=== PATIENT | male | born 1995 | race Caucasian/White ===

== ENCOUNTER 2017-07-23 09:13 | Emergency (ER) | payer SELFPAY ==
[~2017-07-23] VITALS: Ht 170.2 cm; Wt 68.2 kg
[2017-07-23 09:14] VITALS: TEMP 97.2
[2017-07-23 10:45] VITALS: BP 113/68; PULSE 56
== END 2017-07-23 10:45 | disposition home or self-care (01) ==
LOC: COL.ER 09:13
DX: S09.90XA Unspecified injury of head, initial encounter (principal); S01.81XA Laceration without foreign body of other part of head, initial encounter; V00.131A Fall from skateboard, initial encounter; Y93.I9 Activity, other involving external motion; Y92.219 Unspecified school as the place of occurrence of the external cause

== ENCOUNTER 2017-07-31 18:22 | Emergency (ER) | payer SELFPAY ==
[2017-07-31 18:32] VITALS: BP 110/65; PULSE 65; TEMP 98.1
== END 2017-07-31 18:41 | disposition home or self-care (01) ==
LOC: COL.ER 18:22
DX: S01.81XD Laceration without foreign body of other part of head, subsequent encounter (principal)

== ENCOUNTER 2019-02-06 01:40 | Emergency (ER) | payer OTHER ==
[~2019-02-06] VITALS: Ht 170.2 cm; Wt 68.2 kg
[2019-02-06 01:46] VITALS: BP 119/79; TEMP 98.4
[2019-02-06] MEDS ORDERED: CEPHALEXIN500 M1 PO (03:13)
[2019-02-06 03:38] VITALS: PULSE 81
== END 2019-02-06 03:38 | disposition home or self-care (01) ==
LOC: COL.ER 01:40
DX: S61.011A Laceration without foreign body of right thumb without damage to nail, initial encounter (principal); W19.XXXA Unspecified fall, initial encounter

== ENCOUNTER 2019-02-06 12:38 | Emergency (ER) | payer OTHER ==
[~2019-02-06] VITALS: Ht 170.2 cm; Wt 68.2 kg
[~2019-02-06 12:38] MED LIST: CEPHALEXIN500 M1 PO
[2019-02-06 12:50] VITALS: BP 120/77; TEMP 98.6
[2019-02-06 13:31] VITALS: PULSE 72
== END 2019-02-06 13:31 | disposition home or self-care (01) ==
LOC: COL.ER 12:38
DX: Z48.01 Encounter for change or removal of surgical wound dressing (principal)

== ENCOUNTER 2019-02-17 16:46 | Emergency (ER) | payer OTHER ==
[2019-02-17 16:50] VITALS: BP 126/68; PULSE 85; TEMP 98.3
== END 2019-02-17 17:02 | disposition home or self-care (01) ==
LOC: COL.ER 16:46
DX: S61.012D Laceration without foreign body of left thumb without damage to nail, subsequent encounter (principal); X58.XXXD Exposure to other specified factors, subsequent encounter